=== PATIENT | female | born 1980 | race Two or more races ===

== ENCOUNTER 2020-05-09 11:56 | Inpatient (IN) | payer OTHER ==
[~2020-05-09] VITALS: Ht 162.6 cm; Wt 67.6 kg
[2020-05-09] MEDS ORDERED: ASA81 MG PO (13:14)
[2020-05-09] MEDS ORDERED: PRENATAL CAPLE1 EAC1 PO (13:14)
== END 2020-05-11 10:42 | disposition home or self-care (01) | DRG 819 ==
LOC: LDR 11:56
PROVIDERS: ADMIT Obstetrics & Gynecology; ATTEND Obstetrics & Gynecology
PROC: 4A1HXFZ Monitoring of Products of Conception, Cardiac Rhythm, External Approach (ICD-10-PCS; 2020-05-09)
PROC: 0UVC7ZZ Restriction of Cervix, Via Natural or Artificial Opening (ICD-10-PCS; principal; 2020-05-09 17:15)
DX: O34.32 Maternal care for cervical incompetence, second trimester (principal); O30.002 Twin pregnancy, unspecified number of placenta and unspecified number of amniotic sacs, second trimester; Z3A.20 20 weeks gestation of pregnancy; Z20.822 Contact with and (suspected) exposure to COVID-19

== ENCOUNTER 2020-05-28 14:33 | Outpatient (CLI) | payer OTHER ==
[~2020-05-28 14:33] MED LIST: ASA81 MG PO; PRENATAL CAPLE1 EAC1 PO
== END 2020-05-28 15:57 | disposition home or self-care (01) ==
LOC: NST 14:33
PROVIDERS: ATTEND Obstetrics & Gynecology Maternal & Fetal Medicine
DX: Z34.82 Encounter for supervision of other normal pregnancy, second trimester (principal)

== ENCOUNTER → 2020-05-31 | Outpatient (CLI) | payer OTHER ==
[~2020-05-31] MED LIST changes: +NIFEDIPINE20 MG PO; +PROGESTERONE200 MG
== END | disposition home or self-care (01) ==
LOC: NST 11:44
PROVIDERS: ATTEND Obstetrics & Gynecology
DX: Z34.83 Encounter for supervision of other normal pregnancy, third trimester (principal)

== ENCOUNTER 2020-06-11 11:57 | Inpatient (IN) | payer OTHER ==
[~2020-06-11] VITALS: Ht 162.6 cm; Wt 68.0 kg
[~2020-06-11 11:57] MED LIST changes: -NIFEDIPINE20 MG PO; -PROGESTERONE200 MG
[2020-06-11] MEDS ORDERED: NIFEDIPINE20 MG PO (13:36)
[2020-06-12] MEDS ORDERED: PROGESTERONE200 MG (09:37)
== END 2020-06-14 12:55 | disposition home or self-care (01) | DRG 831 ==
LOC: NST 11:57 → LDR 12:51 → SURG-SUITE 06-13 14:14
PROVIDERS: ADMIT Obstetrics & Gynecology Maternal & Fetal Medicine; ATTEND Obstetrics & Gynecology Maternal & Fetal Medicine
PROC: 4A1HXFZ Monitoring of Products of Conception, Cardiac Rhythm, External Approach (ICD-10-PCS; principal; 2020-06-11)
DX: O34.32 Maternal care for cervical incompetence, second trimester (principal); O60.02 Preterm labor without delivery, second trimester; O30.002 Twin pregnancy, unspecified number of placenta and unspecified number of amniotic sacs, second trimester; Z3A.24 24 weeks gestation of pregnancy

== ENCOUNTER → 2020-06-25 | Outpatient (CLI) | payer OTHER ==
[~2020-06-25] MED LIST changes: +NIFEDIPINE20 MG PO; +PROGESTERONE200 MG
== END | disposition home or self-care (01) ==
LOC: NST 14:32
PROVIDERS: ATTEND Obstetrics & Gynecology Maternal & Fetal Medicine
DX: Z34.82 Encounter for supervision of other normal pregnancy, second trimester (principal)

== ENCOUNTER 2020-07-09 09:30 | Outpatient (CLI) | payer OTHER | END 2020-07-09 10:28 | disposition home or self-care (01) | LOC: NST 09:30 | PROVIDERS: ATTEND Obstetrics & Gynecology Maternal & Fetal Medicine | DX: Z34.83 Encounter for supervision of other normal pregnancy, third trimester (principal) ==

== ENCOUNTER 2020-07-16 14:16 | Outpatient (CLI) | payer OTHER | END 2020-07-16 16:41 | disposition home or self-care (01) | LOC: NST 14:16 | PROVIDERS: ATTEND Obstetrics & Gynecology Maternal & Fetal Medicine | DX: Z34.83 Encounter for supervision of other normal pregnancy, third trimester (principal) ==

== ENCOUNTER 2020-07-30 12:59 | Outpatient (CLI) | payer OTHER | END 2020-07-30 14:22 | disposition home or self-care (01) | LOC: NST 12:59 | PROVIDERS: ATTEND Obstetrics & Gynecology Maternal & Fetal Medicine | DX: O30.093 Twin pregnancy, unable to determine number of placenta and number of amniotic sacs, third trimester (principal) ==

== ENCOUNTER 2020-08-01 07:25 | Outpatient (CLI) | payer OTHER | END 2020-08-01 07:59 | disposition home or self-care (01) | LOC: NST 07:25 | PROVIDERS: ATTEND Obstetrics & Gynecology Maternal & Fetal Medicine | DX: O30.003 Twin pregnancy, unspecified number of placenta and unspecified number of amniotic sacs, third trimester (principal) ==

== ENCOUNTER 2020-08-04 09:51 | Outpatient (CLI) | payer OTHER | END 2020-08-04 10:27 | disposition home or self-care (01) | LOC: NST 09:51 | PROVIDERS: ATTEND Obstetrics & Gynecology Maternal & Fetal Medicine | DX: O30.003 Twin pregnancy, unspecified number of placenta and unspecified number of amniotic sacs, third trimester (principal) ==

== ENCOUNTER 2020-08-07 07:20 | Outpatient (CLI) | payer OTHER | END 2020-08-07 07:48 | disposition home or self-care (01) | LOC: NST 07:20 | PROVIDERS: ATTEND Obstetrics & Gynecology Maternal & Fetal Medicine | DX: O30.003 Twin pregnancy, unspecified number of placenta and unspecified number of amniotic sacs, third trimester (principal) ==

== ENCOUNTER 2020-08-13 09:33 | Outpatient (CLI) | payer OTHER | END 2020-08-13 10:10 | disposition home or self-care (01) | LOC: NST 09:33 | PROVIDERS: ATTEND Obstetrics & Gynecology Maternal & Fetal Medicine | DX: Z34.83 Encounter for supervision of other normal pregnancy, third trimester (principal) ==

== ENCOUNTER 2020-08-15 07:35 | Outpatient (CLI) | payer OTHER | END 2020-08-15 08:08 | disposition home or self-care (01) | LOC: NST 07:35 | PROVIDERS: ATTEND Obstetrics & Gynecology Maternal & Fetal Medicine | DX: O30.093 Twin pregnancy, unable to determine number of placenta and number of amniotic sacs, third trimester (principal) ==

== ENCOUNTER 2020-08-27 09:21 | Outpatient (CLI) | payer OTHER | END 2020-08-27 10:00 | disposition home or self-care (01) | LOC: NST 09:21 | PROVIDERS: ATTEND Obstetrics & Gynecology Maternal & Fetal Medicine | DX: Z34.83 Encounter for supervision of other normal pregnancy, third trimester (principal) ==

== ENCOUNTER 2020-09-01 07:23 | Outpatient (CLI) | payer OTHER | END 2020-09-01 07:53 | disposition home or self-care (01) | LOC: NST 07:23 | PROVIDERS: ATTEND Obstetrics & Gynecology Maternal & Fetal Medicine | DX: Z34.83 Encounter for supervision of other normal pregnancy, third trimester (principal) ==

== ENCOUNTER 2020-09-04 07:28 | Outpatient (CLI) | payer OTHER ==
[2020-09-05] MEDS ORDERED: [UNRECOGNIZED DRUG - REMARK] PO (12:31)
[2020-09-05] MEDS ORDERED: PROCAR PO (12:31)
== END 2020-09-04 08:24 | disposition home or self-care (01) ==
LOC: NST 07:28
PROVIDERS: ATTEND Obstetrics & Gynecology Maternal & Fetal Medicine
DX: O30.003 Twin pregnancy, unspecified number of placenta and unspecified number of amniotic sacs, third trimester (principal)

== ENCOUNTER 2020-09-05 10:15 | Inpatient (IN) | payer OTHER ==
[~2020-09-05] VITALS: Ht 162.6 cm; Wt 2288.0 kg
[2020-09-05] MEDS ORDERED: PROCAR PO (12:31)
[2020-09-05] MEDS ORDERED: [UNRECOGNIZED DRUG - REMARK] PO (12:31)
[2020-09-10] MEDS ORDERED: PROGESTERONE200 MG (07:53)
[2020-09-10] MEDS ORDERED: NIFEDIPINE ER60 M1 (07:53)
[2020-09-10] MEDS ORDERED: PRENATAL + DHA1 EAC1 PO (07:54)
[2020-09-13] MEDS ORDERED: KETO10TA2 PO (10:17)
[2020-09-13] MEDS ORDERED: OXYC1TAB9 PO (10:17)
== END 2020-09-13 14:13 | disposition home or self-care (01) | DRG 786 ==
LOC: SURG-SUITE 09-10 06:18 → O/R 09-10 06:18 → OB/GYN 09-10 10:15 → SURG-SUITE 09-10 10:52 → OB/GYN 09-10 13:15 → SURG-SUITE 09-13 14:13
PROVIDERS: ADMIT Obstetrics & Gynecology Maternal & Fetal Medicine; ATTEND Obstetrics & Gynecology Maternal & Fetal Medicine
PROC: 0UCC0ZZ Extirpation of Matter from Cervix, Open Approach (ICD-10-PCS; 2020-09-10)
PROC: 4A1HXFZ Monitoring of Products of Conception, Cardiac Rhythm, External Approach (ICD-10-PCS; 2020-09-10)
PROC: 10D00Z1 Extraction of Products of Conception, Low, Open Approach (ICD-10-PCS; principal; 2020-09-10 13:15)
DX: O32.8XX2 Maternal care for other malpresentation of fetus, fetus 2 (principal); O34.33 Maternal care for cervical incompetence, third trimester; O65.5 Obstructed labor due to abnormality of maternal pelvic organs; O30.043 Twin pregnancy, dichorionic/diamniotic, third trimester; Z3A.37 37 weeks gestation of pregnancy; Z37.2 Twins, both liveborn

== ENCOUNTER 2020-09-08 09:38 | Outpatient (CLI) | payer OTHER ==
[~2020-09-08 09:38] MED LIST changes: +PROCAR PO; +[UNRECOGNIZED DRUG - REMARK] PO
== END 2020-09-08 10:22 | disposition home or self-care (01) ==
LOC: NST 09:38
PROVIDERS: ATTEND Obstetrics & Gynecology
DX: Z34.83 Encounter for supervision of other normal pregnancy, third trimester (principal)

== ENCOUNTER → 2020-09-26 | Outpatient (CLI) | payer OTHER ==
[~2020-09-26] MED LIST changes: +KETO10TA2 PO; +NIFEDIPINE ER60 M1; +OXYC1TAB9 PO; +PRENATAL + DHA1 EAC1 PO
== END | disposition home or self-care (01) ==
LOC: PPH VACUNA
DX: Z23 Encounter for immunization (principal)

== ENCOUNTER 2020-10-17 08:00 | Outpatient (CLI) | payer OTHER | END 2020-10-17 08:30 | disposition home or self-care (01) | LOC: PPH VACUNA 08:00 | DX: Z23 Encounter for immunization (principal) ==

== ENCOUNTER 2021-04-23 09:00 | Outpatient (CLI) | payer OTHER | END 2021-04-23 09:15 | disposition home or self-care (01) | LOC: PPH VACUNA 09:00 | PROVIDERS: ATTEND Emergency Medicine Pediatric Emergency Medicine | DX: Z23 Encounter for immunization (principal) ==